=== PATIENT | male | born 1960 | race Caucasian/White ===

== ENCOUNTER 2020-11-08 20:31 | Emergency (ER) | payer SELFPAY ==
[2020-11-08] MEDS ORDERED: Ketorolac Tromethamine 30 MG/ML VIAL ONE (21:36)
[2020-11-08] MEDS ORDERED: Acetaminophen 500 MG TAB ONE (21:46)
[2020-11-08] MEDS ORDERED: Lidocaine Viscous Sol 2% 15 ml UD Cup ONE (21:48)
== END 2020-11-08 22:08 | disposition home or self-care (01) ==
LOC: ERS 20:31
DX: K02.9 Dental caries, unspecified (principal)
CPT/HCPCS: 96372; 99282; J1885